=== PATIENT | female | born 1965 | race Caucasian/White ===

== ENCOUNTER 2017-12-16 19:09 | Emergency (ER) | payer MEDICAID ==
[~2017-12-16] VITALS: Ht 162.6 cm; Wt 82.6 kg
[2017-12-16] MEDS ORDERED: SILVER SULF. CRM 1% , 25GM ONE (19:48)
[2017-12-16] MEDS ORDERED: SILVER SULF. CRM 1% , 25GM TP ONE (20:00)
== END 2017-12-16 20:41 | disposition home or self-care (01) ==
LOC: ED 20:00
DX: T21.21XA Burn of second degree of chest wall, initial encounter (principal); T22.151A Burn of first degree of right shoulder, initial encounter; T22.10XA Burn of first degree of shoulder and upper limb, except wrist and hand, unspecified site, initial encounter; T31.0 Burns involving less than 10% of body surface; F31.9 Bipolar disorder, unspecified; X10.1XXA Contact with hot food, initial encounter; Y93.89 Activity, other specified; Y99.8 Other external cause status; Y92.89 Other specified places as the place of occurrence of the external cause
CPT/HCPCS: 16000; 93005; 99284

== ENCOUNTER 2018-03-19 03:11 | Inpatient (IN) | payer MEDICAID ==
[~2018-03-19] VITALS: Ht 162.6 cm; Wt 88.8 kg
[2018-03-19] VITALS (11 sets, daily range): BP systolic 154–197; BP diastolic 80–103
[2018-03-19] MEDS ORDERED: SODIUM CHLORIDE 0.9% 1,000ML IVBOLUS ONE (03:30)
[2018-03-19] MEDS ORDERED: ALBUTEROL/IPRATROPIUM 2.5MG/0.5MG, 3 ML NPPB ONE (03:30)
[2018-03-19] MEDS ORDERED: ACETAMINOPHEN 325 MG TABLET PO ONE (03:30)
[2018-03-19] MEDS ORDERED: ACETAMINOPHEN 325 MG TABLET ONE (03:42)
[2018-03-19 03:51] LABS: BASOPHILS # (AUTO) 0.01 x10^3/uL (0-0.1); BASOPHILS % (AUTO) 0 % (0-1); EOSINOPHILS # (AUTO) 0.12 x10^3/uL (0-0.4); EOSINOPHILS % (AUTO) 1 % (1-7); LYMPHOCYTES # (AUTO) 1.08 x10^3/uL (1-3.4); LYMPHOCYTES % (AUTO) 11 % (22-44); MD NO; MEAN CORPUSCULAR HEMOGLOBIN 33.2 pg (27.0-34.8); MEAN CORPUSCULAR HGB CONC 34.8 g/dL (32.4-35.8); MEAN CORPUSCULAR VOLUME 95.2 fL (80-100); MEAN PLATELET VOLUME 7.2 fL (7.4-10.4); MONOCYTES # (AUTO) 0.67 x10^3/uL (0.2-0.8); MONOCYTES % (AUTO) 7 % (2-9); NEUTROPHILS # (AUTO) 8.39 x10^3/uL (1.8-6.8); NEUTROPHILS % (AUTO) 82 % (42-75); PLATELET COUNT 315 x10^3/uL (130-400); RED BLOOD COUNT 4.54 x10^6/uL (3.82-5.3); RED CELL DISTRIBUTION WIDTH 13.2 % (9.6-15.2)
--- NOTE | 2018-03-19 04:00 | NUR ---
LATE ENTRY: PT. TO ED WITH C/O SOB AND COUGH; DENIES HX OF COPD OR ASTHMA. HAS HX OF PNA A COUPLE OF TIMES IN THE PAST. DR. HAWKINS HAD BEEN IN TO EVAL PT. AND DISCUSS POC. EKG WAS COMPLETED IN TRIAGE AND PRESENTED TO ERMD. IV HAS BEEN ESTABLISHED AND IVF INFUSING PER ORDER. ALL MONITORS IN PLACE. RT AT BS FOR BREATHING TX AND PT. REPORTS THAT SHE IS FEELING SLIGHTLY BETTER AFTER THAT. X-RAY AT BS NOW.
[2018-03-19 04:04] LABS: ALBUMIN 3.7 g/dL (3.4-5.0); ANION GAP 7 mmol/L (5-15); CALCIUM 8.9 mg/dL (8.5-10.1); CHLORIDE 102 mmol/L (98-107); CREATININE 0.59 mg/dL (0.55-1.02)
[2018-03-19 04:07] LABS: TROPONIN I < 0.015 ng/mL (0.000-0.045)
--- NOTE | 2018-03-19 04:40 | NUR ---
PT. ASSISTED TO COMMODE AND BACK TO [facility]. PT. VERY WHEEZY AGAIN; DR. HAWKINS UPDATED ON THIS AND VS.
--- NOTE | 2018-03-19 04:45 | NUR ---
RT CALLED FOR 2ND BREATHING TX.
[2018-03-19] MEDS ORDERED: ALBUTEROL/IPRATROPIUM 2.5MG/0.5MG, 3 ML ONE (04:54)
[2018-03-19 04:57] LABS: RAPID INFLUENZA A Negative (Negative); RAPID INFLUENZA B Negative (Negative)
[2018-03-19] MEDS ORDERED: CEFTRIAXONE 1,000 MG in SODIUM CHLORIDE 0.9% 50 ML IVPB ONE (05:00)
[2018-03-19] MEDS ORDERED: ALBUTEROL SULFATE 2.5 MG/3 ML NPPB SCH (05:00)
[2018-03-19] MEDS ORDERED: AZITHROMYCIN 500 MG in SODIUM CHLORIDE 0.9% 250 ML IVPB ONE (05:00)
--- NOTE | 2018-03-19 05:02 | NUR ---
LAB AT FOR BLOOD CULTURES.
[2018-03-19] MEDS ORDERED: CEFTRIAXONE PMX 1GM/50ML 50 ML ONE (05:12)
--- NOTE | 2018-03-19 05:20 | NUR ---
IV ABX HUNG; 2 SETS OF BLOOD CULTURES COMPLETED PRIOR.
--- NOTE | 2018-03-19 05:26 | NUR ---
REPORT TO [facility]. FLOOR READY FOR PT. TRANSPORT.
--- NOTE | 2018-03-19 05:53 | NUR ---
[facility] LEFT ROOM AT THIS TIME; PT. TRANSPORTED TO FLOOR NOW.
[2018-03-19] MEDS ORDERED: ALBUTEROL/IPRATROPIUM 2.5MG/0.5MG, 3 ML NPPB PRN (06:00)
[2018-03-19] MEDS ORDERED: ONDANSETRON 2MG/ML, 2ML IVPush PRN (06:00)
[2018-03-19] MEDS ORDERED: POLYETHYLENE GLYCOL 17 GM PACKET PO PRN (06:00)
[2018-03-19] MEDS ORDERED: PROMETHAZINE 25 MG/ML, 1ML IM PRN (06:00)
[2018-03-19] MEDS ORDERED: ONDANSETRON ODT 4 MG PO PRN (06:00)
[2018-03-19] MEDS ORDERED: ACETAMINOPHEN 325 MG TABLET PO PRN (06:00)
[2018-03-19] MEDS ORDERED: GABAPENTIN 300 MG CAPSULE PO PRN (06:00)
[2018-03-19] MEDS ORDERED: DOCUSATE 100 MG CAPSULE PO PRN (06:00)
[2018-03-19] MEDS ORDERED: BISACODYL 10 MG SUPP PR PRN (06:00)
[2018-03-19] MEDS: AZITHROMYCIN 500 MG in SODIUM CHLORIDE 0.9% 250 ML IV SCH (06:11)
[2018-03-19] MEDS: ALBUTEROL/IPRATROPIUM 2.5MG/0.5MG, 3 ML NPPB SCH ×4 (06:19→19:30)
[2018-03-19 06:26] LABS: HEMOGLOBIN A1C 5.7 % (4.2-6.3)
[2018-03-19 06:28] LABS: FREE T4 (FREE THYROXINE) 1.29 ng/dL (0.76-1.46); THYROID STIMULATING HORMONE 0.864 mIU/L (0.358-3.740)
[2018-03-19] MEDS: LABETALOL 5MG/ML, 20ML IVPush PRN ×2 (06:49→22:20)
[2018-03-19] MEDS ORDERED: MAGNESIUM SULFATE PMX 2GM/50ML 50 ML IV ONE (07:00)
[2018-03-19] MEDS: NICOTINE 7 MG/24 HR PATCH.TD24 TD SCH ×2 (08:00→23:05)
[2018-03-19] MEDS: GUAIFENESIN/DM 200-20MG, 10ML UDC PO PRN ×3 (08:29→20:24)
[2018-03-19] MEDS: methylPREDNISolone SOD SUCC 125 MG/2 ML IVPush SCH ×3 (08:29→20:23)
[2018-03-19] MEDS: ENOXAPARIN 40 MG/0.4 ML SQ SCH (08:29)
[2018-03-19] MEDS ORDERED: BENZONATATE 100 MG CAPSULE ONE (12:55)
[2018-03-19] MEDS: BENZONATATE 100 MG CAPSULE PO SCH ×2 (13:00→20:24)
[2018-03-19] MEDS: hydrALAzine 20 MG/ML, 1ML IVPush PRN (20:24)
[2018-03-20] VITALS (9 sets, daily range): BP systolic 156–204; BP diastolic 71–130
[2018-03-20] MEDS: methylPREDNISolone SOD SUCC 125 MG/2 ML IVPush SCH ×4 (01:47→20:32)
[2018-03-20] MEDS: CEFTRIAXONE PMX 1GM/50ML 50 ML IV SCH (03:07)
[2018-03-20 04:55] LABS: BASOPHILS # (AUTO) 0.03 x10^3/uL (0-0.1); BASOPHILS % (AUTO) 0 % (0-1); EOSINOPHILS % (AUTO) 0 % (1-7); LYMPHOCYTES # (AUTO) 1.11 x10^3/uL (1-3.4); LYMPHOCYTES % (AUTO) 12 % (22-44); MD NO; MEAN CORPUSCULAR HEMOGLOBIN 32.7 pg (27.0-34.8); MEAN CORPUSCULAR HGB CONC 33.7 g/dL (32.4-35.8); MEAN PLATELET VOLUME 7.7 fL (7.4-10.4); MONOCYTES # (AUTO) 0.77 x10^3/uL (0.2-0.8); MONOCYTES % (AUTO) 8 % (2-9); NEUTROPHILS # (AUTO) 7.61 x10^3/uL (1.8-6.8); NEUTROPHILS % (AUTO) 80 % (42-75); PLATELET COUNT 280 x10^3/uL (130-400); RED BLOOD COUNT 3.95 x10^6/uL (3.82-5.3); RED CELL DISTRIBUTION WIDTH 13.7 % (9.6-15.2)
[2018-03-20 04:59] LABS: CHLORIDE 107 mmol/L (98-107)
[2018-03-20 05:05] LABS: ALANINE AMINOTRANSFERASE 39 U/L (12-78); ALBUMIN 3.4 g/dL (3.4-5.0); ALKALINE PHOSPHATASE 76 U/L (45-117); ANION GAP 5 mmol/L (5-15); BILIRUBIN,TOTAL 0.1 mg/dL (0.2-1.0); CHOL/HDL RATIO 4.9; CHOLESTEROL, TOTAL 162 mg/dL (140-239); CREATININE 0.73 mg/dL (0.55-1.02); HDL CHOL % 20 % (28-40); HDL CHOLESTEROL (DIRECT) 33 mg/dL (40-60); LDL CHOLESTEROL,CALCULATED 100 mg/dL (54-169); TOTAL PROTEIN 7.3 g/dL (6.4-8.2); TRIGLYCERIDES 144 mg/dL (50-200); VLDL CHOLESTEROL 29 mg/dL (0-25)
[2018-03-20] MEDS: AZITHROMYCIN 500 MG in SODIUM CHLORIDE 0.9% 250 ML IV SCH (06:26)
[2018-03-20] MEDS: hydrALAzine 20 MG/ML, 1ML IVPush PRN ×2 (07:26→20:33)
[2018-03-20] MEDS: ENOXAPARIN 40 MG/0.4 ML SQ SCH (07:27)
[2018-03-20] MEDS: BENZONATATE 100 MG CAPSULE PO SCH ×3 (07:27→20:32)
[2018-03-20] MEDS: ALBUTEROL/IPRATROPIUM 2.5MG/0.5MG, 3 ML NPPB SCH ×4 (07:45→18:34)
[2018-03-20] MEDS ORDERED: LOSARTAN 50MG TABLET ONE (08:03)
[2018-03-20] MEDS: LOSARTAN 50MG TABLET PO SCH (08:20)
[2018-03-20] MEDS: GUAIFENESIN/DM 200-20MG, 10ML UDC PO PRN (20:33)
[2018-03-20] MEDS: NICOTINE 7 MG/24 HR PATCH.TD24 TD SCH (20:34)
[2018-03-20] MEDS: LABETALOL 5MG/ML, 20ML IVPush PRN ×2 (21:25→23:17)
[2018-03-20] MEDS ORDERED: hydrALAzine 20 MG/ML, 1ML IVPush PRN (22:00)
[2018-03-21] MEDS: methylPREDNISolone SOD SUCC 125 MG/2 ML IVPush SCH ×3 (01:24→13:13)
[2018-03-21 02:00] VITALS: BP 158/79
[2018-03-21] MEDS: CEFTRIAXONE PMX 1GM/50ML 50 ML IV SCH (05:25)
[2018-03-21] MEDS: AZITHROMYCIN 500 MG in SODIUM CHLORIDE 0.9% 250 ML IV SCH (06:23)
[2018-03-21] MEDS: ALBUTEROL/IPRATROPIUM 2.5MG/0.5MG, 3 ML NPPB SCH ×2 (07:00→11:00)
[2018-03-21 07:20] VITALS: BP 165/91
[2018-03-21] MEDS ORDERED: CARVEDILOL 3.125 MG TABLET PO SCH (08:30)
[2018-03-21] MEDS: ENOXAPARIN 40 MG/0.4 ML SQ SCH (08:32)
[2018-03-21] MEDS: BENZONATATE 100 MG CAPSULE PO SCH ×2 (08:32→15:48)
[2018-03-21] MEDS: LOSARTAN 50MG TABLET PO SCH (08:33)
[2018-03-21] MEDS ORDERED: AMLODIPINE 5 MG TABLET PO SCH (09:00)
[2018-03-21] MEDS ORDERED: AZIT500T5 PO (12:08)
[2018-03-21] MEDS ORDERED: PRED5TAB PO (12:08)
[2018-03-21] MEDS ORDERED: IPRA3AMP30 NPPB ×2 (12:08)
[2018-03-21] MEDS ORDERED: CARV3.1212 PO (12:08)
[2018-03-21] MEDS ORDERED: CEFD300C37 PO (12:08)
[2018-03-21] MEDS ORDERED: LOSA50TA2 PO (12:08)
[2018-03-21] MEDS ORDERED: AMLO-150 PO (12:08)
[2018-03-21 12:32] VITALS: BP 186/111
[2018-03-21] MEDS ORDERED: IPRA4AER INH (14:37)
[2018-03-21] MEDS ORDERED: FLUT1BLS INH (14:37)
== END 2018-03-21 16:10 | disposition home or self-care (01) | DRG 193 ==
LOC: ED 03:55 → 3NW 05:10 → DCLOUNGE 03-21 16:00
PROVIDERS: ADMIT Internal Medicine; ATTEND Internal Medicine
DX: J18.9 Pneumonia, unspecified organism (principal); J96.01 Acute respiratory failure with hypoxia; J44.1 Chronic obstructive pulmonary disease with (acute) exacerbation; J44.0 Chronic obstructive pulmonary disease with (acute) lower respiratory infection; F17.210 Nicotine dependence, cigarettes, uncomplicated; F32.9 Major depressive disorder, single episode, unspecified; R00.0 Tachycardia, unspecified; I45.81 Long QT syndrome; Z82.49 Family history of ischemic heart disease and other diseases of the circulatory system; Z87.01 Personal history of pneumonia (recurrent); Z90.49 Acquired absence of other specified parts of digestive tract; Z90.89 Acquired absence of other organs; Z98.891 History of uterine scar from previous surgery; Z88.0 Allergy status to penicillin; Z88.1 Allergy status to other antibiotic agents; Z88.5 Allergy status to narcotic agent
CPT/HCPCS: 36415; 87400; 99285; J7620; 71045; 80048; 80053; 80061; 82040; 83036; 83735; 83880; 84439; 84443; 84484; 85025; 87040; 87076; 93005; 93306; 94640; 96374; G0378; J0456; J0696; J1650; J0360; J2930; J3475; J7030; J7050; J7512

== ENCOUNTER 2020-08-01 10:27 | Emergency (ER) | payer MEDICAID ==
[~2020-08-01] VITALS: Ht 162.6 cm; Wt 91.8 kg
[~2020-08-01 10:27] MED LIST: AMLO-150 PO; AZIT500T10 PO; CARV3.1212 PO; CEFD300C37 PO; FLUT1BLS INH; IPRA3AMP30 NPPB; IPRA4AER INH; LOSA50TA2 PO; PRED5TAB PO
[2020-08-01] MEDS ORDERED: KETOROLAC 30 MG/1 ML IVPush ONE (11:00)
[2020-08-01] MEDS ORDERED: SODIUM CHLORIDE FLUSH 10ML SYR IVF ONE (11:00)
[2020-08-01] MEDS ORDERED: KETOROLAC 30 MG/1 ML ONE (11:11)
--- NOTE | 2020-08-01 11:13 | NUR ---
PT HAVING BEDSIDE US AT THIS TIME.
[2020-08-01 11:16] LABS: BASOPHILS % (AUTO) 1 % (0-1); EOSINOPHILS % (AUTO) 4 % (1-7); LYMPHOCYTES % (AUTO) 29 % (22-44); MD NO; MEAN CORPUSCULAR HEMOGLOBIN 31.6 pg (27.0-34.8); MEAN CORPUSCULAR HGB CONC 33.9 g/dL (32.4-35.8); MEAN PLATELET VOLUME 7.2 fL (7.4-10.4); MONOCYTES % (AUTO) 7 % (2-9); NEUTROPHILS % (AUTO) 59 % (42-75); PLATELET COUNT 255 x10^3/uL (130-400); RED CELL DISTRIBUTION WIDTH 13.2 % (9.6-15.2)
[2020-08-01 11:26] LABS: ALBUMIN 3.6 g/dL (3.4-5.0); ANION GAP 6 mmol/L (5-15); CALCIUM 9.2 mg/dL (8.5-10.1); CHLORIDE 108 mmol/L (98-107); CREATININE 0.59 mg/dL (0.55-1.02)
--- NOTE | 2020-08-01 12:05 | NUR ---
IV STARTED, ORDERED PAIN MEDS GIVEN. PT PLACED ON VITALS MONITORS. WILL CONTINUE TO MONITOR.
[2020-08-01 12:31] VITALS: BP 143/74
== END 2020-08-01 13:50 | disposition home or self-care (01) ==
LOC: ED 10:53
DX: M71.22 Synovial cyst of popliteal space [Baker], left knee (principal); M25.562 Pain in left knee; R60.0 Localized edema; I10 Essential (primary) hypertension; F17.210 Nicotine dependence, cigarettes, uncomplicated
CPT/HCPCS: 36415; 71045; 73564; 80048; 82040; 83880; 85025; 93005; 93970; 96374; 99285; J1885